=== PATIENT | female | born 1935 | race Caucasian/White ===

== ENCOUNTER 2017-01-10 11:32 | Outpatient (CLI) | payer MEDICARE, OTHER ==
[~2017-01-10 11:32] MED LIST: BISO1TAB37 PO; BUPR300T52 PO; CARI250T PO; ESTR-3 PO; FLUT16SP NS; LEVO112T5 PO; MELO-264 PO; PREG75CA PO; RABE20TA5 PO
== END 2017-01-10 23:59 | disposition home or self-care (01) ==
LOC: RAD 11:32
DX: I50.9 Heart failure, unspecified (principal); M43.8X4 Other specified deforming dorsopathies, thoracic region; Z90.49 Acquired absence of other specified parts of digestive tract
CPT/HCPCS: 71020-TC

== ENCOUNTER 2024-07-18 18:06 | Inpatient (IN) | payer MEDICARE, OTHER ==
[~2024-07-18] VITALS: Ht 167.6 cm; Wt 74.1 kg
[~2024-07-18 18:06] MED LIST changes: +MELO-107 PO; -MELO-264 PO; +RABE20TA18 PO; -RABE20TA5 PO
[2024-07-18 19:41] LABS: BASOPHILS % (AUTO) 0.4 % (0.0-2.0); EOSINOPHILS # (AUTO) 0.2 K/uL (0.0-0.7); EOSINOPHILS % (AUTO) 2.2 % (0.0-6.0); HEMATOCRIT 39 % (33-45); HEMOGLOBIN 13.2 g/dL (11.5-14.8); LYMPHOCYTES % (AUTO) 21.3 % (20.0-44.0); MEAN CORPUSCULAR HEMOGLOBIN 32 PG (26.0-33.0); MEAN CORPUSCULAR HGB CONC 34 g/dl (31.0-36.0); MEAN CORPUSCULAR VOLUME 94 fL (82-100); MONOCYTES # (AUTO) 0.9 K/uL (0.1-1.30); MONOCYTES % (AUTO) 9.9 % (2.0-12.0); NEUTROPHILS # (AUTO) 6.2 K/uL (1.8-8.9); NEUTROPHILS % (AUTO) 66.2 % (43.0-81.0); PLATELET COUNT (AUTO) 248 K/uL (150-450); RED BLOOD CELL COUNT(AUTO) 4.12 MIL/uL (4.0-5.2); RED CELL DISTRIBUTION WIDTH 13.6 % (11.5-15.0); WHITE BLOOD COUNT (AUTO) 9.4 K/uL (4.3-11.0)
[2024-07-18 19:58] LABS: CALCIUM, SERUM 8.7 mg/dL (8.5-10.1); CREATININE 1.4 mg/dL (0.6-1.3); POTASSIUM 4.2 mmol/L (3.5-5.1)
[2024-07-18 20:04] LABS: ALBUMIN 3.4 g/dL (3.4-5.0); BILIRUBIN,DIRECT 0.1 mg/dL (0.0-0.2); BILIRUBIN,TOTAL 0.4 mg/dL (0.2-1.0); TOTAL PROTEIN, SERUM 7.4 g/dL (6.4-8.2)
[2024-07-18 20:05] LABS: INR 0.98 (0.91-1.10); PARTIAL THROMBOPLASTIN TIME 24.7 SEC (24.3-34.3); PROTHROMBIN TIME 10.4 SECS (9.2-11.1)
[2024-07-18 20:36] LABS: APPEARANCE,URINE SLIGHTLY CLOUDY (CLEAR); BILIRUBIN,URINE NEGATIVE (NEGATIVE); BLOOD, URINE NEGATIVE Ery/uL (NEGATIVE); COLOR,URINE DARK YELLOW (YELLOW); KETONES,URINE TRACE mg/dL (NEGATIVE); LEUKOCYTE ESTERASE ,URINE NEGATIVE (NEGATIVE); NITRITE, URINE NEGATIVE (NEGATIVE); PH,URINE 5.5 (5.0-8.0); PROTEIN,URINE NEGATIVE (NEGATIVE); UGLUCOSE NEGATIVE (NEGATIVE); UROBILINOGEN,URINE 0.2 EU/dL (0.2)
[2024-07-18 21:07] LABS: ADD URINE CULTURE NO; BACTERIA,URINE None seen /HPF (None Seen); MUCUS,URINE Few /LPF (None Seen); RBC,URINE 0-2 /HPF (0-2); URINE AMORPHOUS URATE Few /HPF (None Seen); WBC,URINE 0-2 /HPF (0-3)
[2024-07-18] MEDS ORDERED: ONDANSETRON HCL/PF 4 MG/2 ML VIAL IVP PRN (23:00)
[2024-07-18] MEDS ORDERED: MORPHINE SULFATE INJ 2 MG/ML DISP.SYRIN IV PRN (23:00)
[2024-07-18 23:47] LABS: THYROID STIMULATING HORMONE 5.09 uIU/mL (0.358-3.74)
[2024-07-19 01:15] VITALS: BP 153/74; TEMP 97.3; O2SAT 94
[2024-07-19] MEDS: IV NS 0.9% 1,000 ML IV SCH (02:39)
[2024-07-19] MEDS: ACETAMINOPHEN 325 MG TABLET PO PRN (02:47)
[2024-07-19 07:50] LABS: BASOPHILS % (AUTO) 0.1 % (0.0-2.0); EOSINOPHILS # (AUTO) 0.2 K/uL (0.0-0.7); EOSINOPHILS % (AUTO) 2.2 % (0.0-6.0); HEMATOCRIT 38 % (33-45); HEMOGLOBIN 13.1 g/dL (11.5-14.8); LYMPHOCYTES # (AUTO) 2.1 K/uL (0.8-4.8); MEAN CORPUSCULAR HEMOGLOBIN 32 PG (26.0-33.0); MEAN CORPUSCULAR HGB CONC 34 g/dl (31.0-36.0); MEAN CORPUSCULAR VOLUME 93 fL (82-100); MONOCYTES # (AUTO) 0.8 K/uL (0.1-1.30); MONOCYTES % (AUTO) 8.8 % (2.0-12.0); NEUTROPHILS # (AUTO) 6.3 K/uL (1.8-8.9); NEUTROPHILS % (AUTO) 66.9 % (43.0-81.0); PLATELET COUNT (AUTO) 269 K/uL (150-450); RED BLOOD CELL COUNT(AUTO) 4.07 MIL/uL (4.0-5.2); RED CELL DISTRIBUTION WIDTH 13.2 % (11.5-15.0); WHITE BLOOD COUNT (AUTO) 9.5 K/uL (4.3-11.0)
[2024-07-19 08:17] LABS: ALBUMIN 3.2 g/dL (3.4-5.0); BILIRUBIN,TOTAL 0.5 mg/dL (0.2-1.0); CALCIUM, SERUM 8.5 mg/dL (8.5-10.1); CREATININE 1.1 mg/dL (0.6-1.3); MAGNESIUM 2.4 mg/dL (1.8-2.4); PHOSPHORUS 3.9 mg/dL (2.5-4.9); POTASSIUM 4.1 mmol/L (3.5-5.1)
[2024-07-19] MEDS: PREGABALIN 25 MG CAPSULE PO SCH (08:30)
[2024-07-19] MEDS: BUPROPION XL 150 MG TAB.ER.24 PO SCH (08:30)
[2024-07-19] MEDS: LEVOTHYROXINE SODIUM 112 MCG TABLET PO SCH (08:30)
[2024-07-19] MEDS: HEPARIN SODIUM, PORCINE 5000 UNITS/1 ML VIAL SQ SCH (08:31)
[2024-07-19] MEDS ORDERED: QUET50TA PO ×2 (08:51)
[2024-07-19] MEDS ORDERED: TRAZ-257 PO (08:51)
[2024-07-19] MEDS ORDERED: ASPI-1169 PO (08:51)
[2024-07-19] MEDS ORDERED: FAMO40TA7 PO (08:51)
[2024-07-19] MEDS ORDERED: FURO20TA4 PO (08:51)
[2024-07-19] MEDS ORDERED: LOSA25TA27 PO (08:51)
[2024-07-19] MEDS ORDERED: LEVO100T9 PO (08:51)
[2024-07-19] MEDS ORDERED: DIVA-76 PO (08:51)
[2024-07-19] MEDS ORDERED: GABA300C PO (08:51)
[2024-07-19] MEDS ORDERED: METO25TA20 PO (08:51)
[2024-07-19] MEDS ORDERED: ATOR20TA PO (08:51)
[2024-07-19] MEDS ORDERED: DEXL60CA3 PO (08:51)
[2024-07-19] MEDS ORDERED: ESCI10TA PO (08:51)
[2024-07-19] MEDS ORDERED: BISOPROL PO SCH (09:00)
[2024-07-19] MEDS ORDERED: HCTZ PO SCH (09:00)
[2024-07-19] MEDS: ATENOLOL 50 MG TABLET PO SCH (12:04)
[2024-07-19] MEDS: HYDROCHLOROTHIAZIDE 25 MG TABLET PO SCH (12:05)
[2024-07-20 04:04] VITALS: BP 154/74; TEMP 98.2; O2SAT 93
[2024-07-20 07:55] LABS: BASOPHILS % (AUTO) 0.1 % (0.0-2.0); EOSINOPHILS % (AUTO) 3.2 % (0.0-6.0); HEMATOCRIT 36 % (33-45); HEMOGLOBIN 12.6 g/dL (11.5-14.8); LYMPHOCYTES % (AUTO) 25.9 % (20.0-44.0); MEAN CORPUSCULAR HEMOGLOBIN 33 PG (26.0-33.0); MEAN CORPUSCULAR HGB CONC 35 g/dl (31.0-36.0); MEAN CORPUSCULAR VOLUME 94 fL (82-100); NEUTROPHILS % (AUTO) 61.8 % (43.0-81.0); PLATELET COUNT (AUTO) 235 K/uL (150-450); RED BLOOD CELL COUNT(AUTO) 3.85 MIL/uL (4.0-5.2); RED CELL DISTRIBUTION WIDTH 13.1 % (11.5-15.0); WHITE BLOOD COUNT (AUTO) 7.6 K/uL (4.3-11.0)
[2024-07-20 07:56] LABS: EOSINOPHILS # (AUTO) 0.2 K/uL (0.0-0.7); MONOCYTES # (AUTO) 0.7 K/uL (0.1-1.30); NEUTROPHILS # (AUTO) 4.7 K/uL (1.8-8.9)
[2024-07-20 08:00] VITALS: BP 156/71; TEMP 97.5; O2SAT 92
[2024-07-20 08:09] LABS: ALBUMIN 2.8 g/dL (3.4-5.0); BILIRUBIN,TOTAL 0.6 mg/dL (0.2-1.0); CALCIUM, SERUM 8.5 mg/dL (8.5-10.1); CREATININE 0.9 mg/dL (0.6-1.3); MAGNESIUM 2.2 mg/dL (1.8-2.4); PHOSPHORUS 4.2 mg/dL (2.5-4.9); TOTAL PROTEIN, SERUM 6.4 g/dL (6.4-8.2)
[2024-07-20 12:00] VITALS: BP 128/51; TEMP 97.6; O2SAT 95
[2024-07-20 16:00] VITALS: BP 153/81; TEMP 97.5; O2SAT 95
[2024-07-20] MEDS: IV NS 0.9% 1,000 ML IV PRN (18:28)
[2024-07-20 20:00] VITALS: BP 99/73; TEMP 97.7; O2SAT 94
[2024-07-21] VITALS (9 sets, daily range): BP systolic 85–170; BP diastolic 59–87; TEMP 97.7–98.8; O2SAT 93–97
[2024-07-21] MEDS ORDERED: OLANZAPINE 10 MG VIAL IM PRN (17:30)
[2024-07-21] MEDS: OLANZAPINE ZYDIS 5 MG TAB.RAPDIS PO SCH (21:06)
[2024-07-21] MEDS: hydrALAZINE HCL IV 20 MG VIAL IV PRN (21:07)
[2024-07-22] VITALS: BP 174/75; TEMP 98.2; O2SAT 96
[2024-07-22 02:10] VITALS: BP 144/68
[2024-07-22 04:00] VITALS: BP 130/77; TEMP 98.2; O2SAT 95
[2024-07-22 07:59] LABS: CALCIUM, SERUM 9.5 mg/dL (8.5-10.1); CREATININE 0.8 mg/dL (0.6-1.3); MAGNESIUM 2.2 mg/dL (1.8-2.4); PHOSPHORUS 4.3 mg/dL (2.5-4.9); POTASSIUM 3.8 mmol/L (3.5-5.1)
[2024-07-22 08:00] LABS: BASOPHILS % (AUTO) 0.2 % (0.0-2.0); EOSINOPHILS # (AUTO) 0.1 K/uL (0.0-0.7); EOSINOPHILS % (AUTO) 0.6 % (0.0-6.0); HEMATOCRIT 40 % (33-45); HEMOGLOBIN 13.7 g/dL (11.5-14.8); LYMPHOCYTES # (AUTO) 1.8 K/uL (0.8-4.8); LYMPHOCYTES % (AUTO) 15.6 % (20.0-44.0); MEAN CORPUSCULAR HEMOGLOBIN 32 PG (26.0-33.0); MEAN CORPUSCULAR HGB CONC 35 g/dl (31.0-36.0); MEAN CORPUSCULAR VOLUME 93 fL (82-100); MONOCYTES % (AUTO) 8.9 % (2.0-12.0); NEUTROPHILS # (AUTO) 8.7 K/uL (1.8-8.9); NEUTROPHILS % (AUTO) 74.7 % (43.0-81.0); PLATELET COUNT (AUTO) 278 K/uL (150-450); RED BLOOD CELL COUNT(AUTO) 4.26 MIL/uL (4.0-5.2); RED CELL DISTRIBUTION WIDTH 13.5 % (11.5-15.0); WHITE BLOOD COUNT (AUTO) 11.6 K/uL (4.3-11.0)
[2024-07-22 09:53] VITALS: BP 149/86; TEMP 97.9; O2SAT 94
[2024-07-22 12:00] VITALS: BP 134/53; TEMP 98.2; O2SAT 98
== END 2024-07-22 14:43 | disposition left against medical advice (07) | DRG 70 ==
LOC: ER 18:20 → TELE1 07-19 00:02 → MEDSG1 07-22 08:46
PROVIDERS: ADMIT Internal Medicine
DX: I67.83 Posterior reversible encephalopathy syndrome (principal); N17.0 Acute kidney failure with tubular necrosis; F05 Delirium due to known physiological condition; F03.93 Unspecified dementia, unspecified severity, with mood disturbance; G92.8 Other toxic encephalopathy; F32.A Depression, unspecified; G62.9 Polyneuropathy, unspecified; E03.9 Hypothyroidism, unspecified; E78.5 Hyperlipidemia, unspecified; G93.41 Metabolic encephalopathy; I11.0 Hypertensive heart disease with heart failure; F29 Unspecified psychosis not due to a substance or known physiological condition; I50.9 Heart failure, unspecified; R00.1 Bradycardia, unspecified; Z98.2 Presence of cerebrospinal fluid drainage device; Z79.899 Other long term (current) drug therapy; Z66 Do not resuscitate; J44.9 Chronic obstructive pulmonary disease, unspecified
CPT/HCPCS: 36415; 70360-TC; 70450-TC; 71045-TC; 74018; 80048-TC; 80053-TC; 80076-TC; 81001; 83735-TC; 84100-TC; 84439-TC; 84443-TC; 84481; 84484-TC; 85025-TC; 85730-TC; 87081-TC; 93307-TC; A4223; G0378; J0360; J1644; J7030